=== PATIENT | male | born 2000 | race African-American/Black ===

== ENCOUNTER 2021-03-13 00:30 | Emergency (ER) | payer OTHER ==
[2021-03-13 00:40] VITALS: BP 111/59; PULSE 60; RESP 18; TEMP 98.4
[2021-03-13] MEDS ORDERED: BACITRACIN OINT 1 EACH PACKET TOPICAL ONE (01:15)
[2021-03-13] MEDS ORDERED: LIDOCAINE 1% INJ 10MG/ML (20 ML MDV) SQ ONE (01:15)
--- NOTE | 2021-03-13 01:42 | ED ---
Wound/Laceration HPI - General Chief Complaint: Wound/Laceration Stated Complaint: lip lac Time Seen by Provider: 03/13/21 01:02 Source: patient Mode of arrival: ambulatory - History of Present Illness Initial Comments: 20-year-old male patient presented to the emergency department today for evaluation of left upper lip laceration. Patient states he is playing basketball a few hours ago when he was elbowed in the face. Patient states he is unable to get the area to stop bleeding. He denies falling, hitting his head, losing consciousness. Denies any loose or broken teeth. Denies any neck or back pain. Denies any other injuries. Last tetanus vaccine was within 3-4 months. - Related Data Allergies Allergy/AdvReac Type Severity Reaction Status Date / Time No Known Allergies Allergy Verified 03/13/21 00:40 Review of Systems ROS Statement: Those systems with pertinent positive or pertinent negative responses have been documented in the HPI. ROS Other: All systems not noted in ROS Statement are negative. Past Medical History Past Medical History: No Reported History History of Any Multi-Drug Resistant Organisms: None Reported Past Surgical History: Appendectomy Past Psychological History: No Psychological Hx Reported Smoking Status: Never smoker Past Alcohol Use History: None Reported Past Drug Use History: None Reported General Exam General appearance: alert, in no apparent distress Eye exam: Present: normal appearance, PERRL, EOMI. Absent: scleral icterus, conjunctival injection, periorbital swelling ENT exam: Present: normal oropharynx, mucous membranes moist, other (There is 2 cm laceration noted to the left upper lip with distal portion just involving the vermilion border) Neck exam: Present: normal inspection, full ROM, other (Nontender, no step-off, no deformity to firm midline palpation of the posterior cervical spine. Full range of motion without pain or limitation.). Absent: tenderness, meningismus, lymphadenopathy Respiratory exam: Present: normal lung sounds bilaterally. Absent: respiratory distress, wheezes, rales, rhonchi, stridor Cardiovascular Exam: Present: regular rate, normal rhythm, normal heart sounds. Absent: systolic murmur, diastolic murmur, rubs, gallop, clicks Neurological exam: Present: alert, oriented X3, CN II-XII intact Psychiatric exam: Present: normal affect, normal mood Skin exam: Present: warm, dry, intact, normal color. Absent: rash Course Vital Signs 03/13/21 00:37 Temperature 98.4 F Pulse Rate 60 Respiratory 18 Rate Blood Pressure 111/59 O2 Sat by Pulse 97 Oximetry Procedures - Laceration Laceration #1 Consent Obtained: verbal consent Indication: laceration Site: lip (Left upper) Size (cm): 2 Description: linear Depth: simple, single layer Anesthetic Used: lidocaine 1% Anesthesia Technique: local infiltration Amount (mls): 1 Pre-repair: irrigated extensively Type of Sutures: nylon Size of Sutures: 6-0 Number of Sutures: 3 Technique: simple, interrupted Patient Tolerated Procedure: well, no complications Medical Decision Making - Medical Decision Making 20-year-old male patient presents to the emergency department today for evaluation of laceration to the left upper lip. Physical examination did reveal a 2 cm laceration to the lip. This was repaired as documented. He was educated regarding wound care, signs or symptoms of infection, suture removal. Return parameters discussed in detail. He verbalizes understanding and agrees with this plan. My attending is Dr. Deras. Disposition Clinical Impression: Lip laceration Disposition: HOME SELF-CARE Condition: Good Instructions (If sedation given, give patient instructions): Care For Your Stitches (ED), Laceration (ED) Additional Instructions: Keep wound clean and dry. Cleanse twice daily with warm water and antibacterial soap. Return in 4 days have the stitches removed. Follow-up through primary care physician for recheck in 1-2 days. Return for any new, worsening, or concerning symptoms. Is patient prescribed a controlled substance at d/c from ED?: No Referrals: None,Stated [Primary Care Provider] - 1-2 days Time of Disposition: 01:42
== END 2021-03-13 02:07 | disposition home or self-care (01) ==
LOC: EC 00:30
DX: S01.511A Laceration without foreign body of lip, initial encounter (principal); W50.0XXA Accidental hit or strike by another person, initial encounter; Y93.67 Activity, basketball
CPT/HCPCS: 12011; 99282; J2001

== ENCOUNTER 2021-08-01 09:25 | Emergency (ER) | payer OTHER ==
[2021-08-01 10:32] VITALS: RESP 18
[2021-08-01 11:07] LABS: Appearance,Urine Clear (Clear); Bilirubin,Urine Negative (Negative); Blood,Urine Negative (Negative); Color,Urine Yellow; Glucose,Urine (UA) Negative (Negative); Ketones,Urine Negative (Negative); Leukocyte Esterase,Urine Negative (Negative); Nitrite,Urine Negative (Negative); PH, Urine 7.5 (5.0-8.0); Protein,Urine Trace (Negative)
[2021-08-01] MEDS ORDERED: metroNIDAZOLE 500 MG TAB PO STA (12:32)
[2021-08-01] MEDS ORDERED: DOXYCYCLINE 100 MG CAP PO STA (12:34)
[2021-08-01] MEDS ORDERED: cefTRIAXone 1,000 MG VIAL (IM USE) IM STA (12:36)
--- NOTE | 2021-08-01 12:40 | ED ---
General Adult HPI - General Chief complaint: Urogenital Stated complaint: STD check Time Seen by Provider: 08/01/21 11:51 Source: patient Mode of arrival: ambulatory Limitations: no limitations - History of Present Illness Initial comments: This 20-year-old male presents emergency department requesting to get tested for STDs. Patient states his sexual partner tested positive for either Chlamydia or gonorrhea couple days ago and patient is requesting to get treated. Patient states he does experience a little bit of burning with urination and states he does have a small amount of yellowish discharge coming from his urethra for the last 1-2 days. Patient states he does not want physical exam and states he just wants to be treated. Patient denies any ulcers, growths or other discharge coming from or on his penis or scrotum/genital area. Patient denies any scrotal swelling. Patient denies any testicular pain. Patient denies any fever. Pat ient states he is only sexually active with 1 person, however he was aware that she is sexually active with multiple. Patient denies any change in his urination or bowel movements. Patient denies any chest pain, shortness of breath, abdominal pain, nausea, vomiting, headache, lightheadedness, dizziness, weakness. - Related Data Previous Rx's Medication Instructions Recorded Doxycycline [Vibramycin] 100 mg PO BID 7 Days #14 capsule 08/01/21 Allergies Allergy/AdvReac Type Severity Reaction Status Date / Time No Known Allergies Allergy Verified 08/01/21 10:32 Review of Systems ROS Statement: Those systems with pertinent positive or pertinent negative responses have been documented in the HPI. ROS Other: All systems not noted in ROS Statement are negative. Past Medical History Past Medical History: No Reported History History of Any Multi-Drug Resistant Organisms: None Reported Past Surgical History: Appendectomy Past Psychological History: No Psychological Hx Reported Smoking Status: Never smoker Past Alcohol Use History: None Reported Past Drug Use History: None Reported General Exam Limitations: no limitations General appearance: alert, in no apparent distress Head exam: Present: atraumatic, normocephalic Eye exam: Present: normal appearance, PERRL, EOMI ENT exam: Present: mucous membranes moist Neck exam: Present: full ROM Respiratory exam: Present: normal lung sounds bilaterally. Absent: respiratory distress, wheezes, rales, rhonchi, stridor Cardiovascular Exam: Present: regular rate, normal rhythm, normal heart sounds. Absent: systolic murmur, diastolic murmur, rubs, gallop, clicks GI/Abdominal exam: Present: soft, normal bowel sounds. Absent: distended, tenderness, guarding, rebound, rigid exam: Present: normal inspection (He refuses exam, however he states he is not experiencing any testicular tenderness, scrotal swelling and states his urethral discharge has been slightly yellow, he denies any excessive amount of it x2 days), other (Patient refused physical examination. I did discuss possible epididymitis, scrotal masses, varicoceles, chankers or other ulcers that would need to be visualized. I did inform him about testicular pain and scrotal swelling, patient stated he will return to emergency department if he experiences) Extremities exam: Present: full ROM Back exam: Present: full ROM Neurological exam: Present: alert, oriented X3, CN II-XII intact Psychiatric exam: Present: normal affect, normal mood Skin exam: Present: warm, dry, intact, normal color. Absent: rash Course Vital Signs 08/01/21 10:30 Temperature 97.8 F Pulse Rate 50 L Respiratory 18 Rate Blood Pressure 124/62 O2 Sat by Pulse 100 Oximetry Medical Decision Making - Medical Decision Making This 20-year-old male presents emergency Department requesting to get tested for STDs. Patient did refuse physical examination of genitals/penis/scrotum/testicles/groin. Urine unremarkable. Patient was requesting to discussed it tested for STDs and stated he would return if he experienced any new or worsening symptoms other than his yellow urethral discharge. Patient was treated here for gonorrhea, chlamydia and Trichomonas. 7 days of doxycycline were sent to his pharmacy. Strict return precautions were discussed. Patient instructed to follow up with his primary care provider next 1-2 days. Patient sent home in stable condition. Patient verbally agreed to plan. Case discussed with my attending, Dr. Walker. - Lab Data Lab Results 08/01/21 Range/Units 10:54 Urine Color Yellow Urine Appearance Clear (Clear) Urine pH 7.5 (5.0-8.0) Ur Specific [place] 1.030 (1.001-1.035) Urine Protein Trace H (Negative) Urine Glucose (UA) Negative (Negative) Urine Ketones Negative (Negative) Urine Blood Negative (Negative) Urine Nitrite Negative (Negative) Urine Bilirubin Negative (Negative) Urine Urobilinogen 2.0 (<2.0) mg/dL Ur Leukocyte Esterase Negative (Negative) Disposition Clinical Impression: Exposure to sexually transmitted disease (STD) Disposition: HOME SELF-CARE Condition: Stable Instructions (If sedation given, give patient instructions): Chlamydia (ED), Male Condom Use (ED), Gonorrhea (ED), Trichomoniasis (ED), Sexually Transmitted Diseases in Adolescents (ED), Safe Sex Practices for Adolescents (ED) Additional Instructions: Follow-up with primary care provider next 24-48 hours. Take doxycycline as prescribed. Return to the emergency department with any new, worsening, or concerning symptoms. No alcohol use for 5 days due to getting metronidazole in the emergency department. Prescriptions: Doxycycline [Vibramycin] 100 mg PO BID 7 Days #14 capsule Is patient prescribed a controlled substance at d/c from ED?: No Referrals: None,Stated [Primary Care Provider] - 1-2 days Time of Disposition: 12:40
[2021-08-01 12:52] VITALS: BP 115/75; PULSE 56; TEMP 98.1
[2021-08-02 15:27] LABS: C. trachomatis,PCR Negative (Neg,Equiv); Chlamydia trachomatis Source Urine; N. gonorrhoeae,PCR Negative (Neg,Equiv); Neisseria Source Urine
== END 2021-08-01 12:58 | disposition home or self-care (01) ==
LOC: EC 09:25
DX: Z20.2 Contact with and (suspected) exposure to infections with a predominantly sexual mode of transmission (principal)
CPT/HCPCS: 81003; 87491; 87591; 99283; 96372; J0696; 87661